=== PATIENT | female | born 1980 | race African-American/Black ===

== ENCOUNTER 2018-02-10 09:52 | Emergency (ER) | payer OTHER ==
[2018-02-10 10:13] VITALS: BP 127/79; PULSE 65; TEMP 98.4; BMI 38.7
[2018-02-10] MEDS ORDERED: IBUPROFEN 600 MG TABLET (FP) PO ONE ×2 (10:57→10:59)
--- NOTE | 2018-02-10 11:26 | PDOC ---
History of Present Illness - General Chief Complaint: Injury Stated Complaint: INJURY Time Seen by Provider: 02/10/18 10:55 History Source: Patient Exam Limitations: No Limitations - History of Present Illness Initial Comments: 02/10/18 11:23 pt twisted her left ankle on wet floor at work this morning . no obvious deformity or swelling. no pmhx. Past History - Past Medical History Allergies/Adverse Reactions: Allergies Allergy/AdvReac Type Severity Reaction Status Date / Time No Known Allergies Allergy Verified 02/10/18 10:10 Home Medications: Ambulatory Orders NK [No Known Home Medication] 02/10/18 COPD: No - Suicide/Smoking/Psychosocial Hx Smoking History: Current some day smoker Have you smoked in the past 12 months: Yes Number of Cigarettes Smoked Daily: 1 Information on smoking cessation initiated: No Hx Alcohol Use: No Drug/Substance Use Hx: No *Physical Exam - Vital Signs Last Vital Signs Temp Pulse Resp BP Pulse Ox 98.4 F 65 18 127/79 100 02/10/18 10:11 02/10/18 10:11 02/10/18 10:11 02/10/18 10:11 02/10/18 10:11 - Physical Exam General Appearance: Yes: Nourished, Appropriately Dressed HEENT: positive: EOMI, BLAISE Extremity: positive: Normal Capillary Refill, Normal Inspection, Normal Range of Motion, Tender (posterior ankle , medially tender to touch ) Integumentary: positive: Normal Color, Dry Neurologic: positive: Fully Oriented, Alert, Normal Mood/Affect, Normal Response , Motor Strength 5/5 Moderate Sedation - Procedure Monitoring Vital Signs: Procedure Monitoring Vital Signs Temperature 98.4 F 02/10/18 10:11 Pulse Rate 65 02/10/18 10:11 Respiratory Rate 18 02/10/18 10:11 Blood Pressure 127/79 02/10/18 10:11 O2 Sat by Pulse Oximetry (%) 100 02/10/18 10:11 Procedures - Splinting Splint Location: Left: Ankle Kuldip Bandage: yes, 3" ED Treatment Course - RADIOLOGY Radiology Studies Ordered: Category Date Time Status ANKLE-LEFT [RAD] Stat Radiology 02/10/18 10:57 Taken - Medications Given in the ED: ED Medications Discontinued Medications Generic Name Dose Route Start Last Admin Trade Name Freq PRN Reason Stop Dose Admin Ibuprofen 600 mg 02/10/18 10:57 02/10/18 11:02 Motrin - PO 02/10/18 10:58 600 mg ONCE ONE Administration Medical Decision Making - Medical Decision Making 02/10/18 11:23 cc: pain to left ankle posteriorly and medially nv intact no swelling or deformity will get xray to r/o fracture motrin for pain, ice pack in place *DC/Admit/Observation/Transfer Diagnosis at time of Disposition: Ankle sprain Qualifiers: Encounter type: initial encounter Involved ligament of ankle: unspecified ligament Laterality: left Qualified Code(s): S93.402A - Sprain of unspecified ligament of left ankle, initial encounter - Discharge Dispostion Disposition: HOME Condition at time of disposition: Good - Referrals Referrals: Saurav Michaels DO [Staff Physician] - - Patient Instructions Additional Instructions: elevate the ankle and apply ice every 2hrs for 20 minutes take motrin as needed for pain please follow up with the orthopedist in one week if pain persists or worsens - Post Discharge Activity Forms/Work/School Notes: Back to Work
== END 2018-02-10 11:38 | disposition home or self-care (01) ==
LOC: JERFT 09:52
PROC: 2W3RX1Z Immobilization of Left Lower Leg using Splint (ICD-10-PCS; principal; 2018-02-10)
DX: S93.402A Sprain of unspecified ligament of left ankle, initial encounter (principal); W01.0XXA Fall on same level from slipping, tripping and stumbling without subsequent striking against object, initial encounter; Y93.89 Activity, other specified; Y92.69 Other specified industrial and construction area as the place of occurrence of the external cause; Y99.0 Civilian activity done for income or pay
CPT/HCPCS: 73610-TC-LT-FY; 99281-25

== ENCOUNTER 2018-11-16 15:21 | Emergency (ER) | payer OTHER ==
[2018-11-16 15:27] VITALS: BMI 39.1
[2018-11-16 15:37] VITALS: BP 127/68; PULSE 80; TEMP 99.6
--- NOTE | 2018-11-16 15:55 | PDOC ---
History of Present Illness - General Chief Complaint: Urinary Problem Stated Complaint: PAIN ON URINATION Time Seen by Provider: 11/16/18 15:46 History Source: Patient Past History - Past Medical History Allergies/Adverse Reactions: Allergies Allergy/AdvReac Type Severity Reaction Status Date / Time No Known Allergies Allergy Verified 11/16/18 15:27 Home Medications: Ambulatory Orders Phenazopyridine HCl [Pyridium] 200 mg PO TID #12 tablet 11/16/18 levoFLOXacin [Levaquin] 750 mg PO DAILY #7 tab 11/16/18 COPD: No - Psycho Social/Smoking Cessation Hx Smoking History: Current some day smoker Have you smoked in the past 12 months: Yes Number of Cigarettes Smoked Daily: 1 Information on smoking cessation initiated: Yes Hx Alcohol Use: No Drug/Substance Use Hx: No *Physical Exam - Vital Signs Last Vital Signs Temp Pulse Resp BP Pulse Ox 99.6 F 80 18 127/68 100 11/16/18 15:21 11/16/18 15:21 11/16/18 15:21 11/16/18 15:21 11/16/18 15:21 ED Treatment Course - ADDITIONAL ORDERS Additional order review: Laboratory Results 11/16/18 15:22 Urine Color Yellow Urine Appearance Clear Urine pH 6.5 Urine Protein 3+ H Urine Glucose (UA) Negative Urine Ketones Negative Urine Blood 3+ H Urine Nitrite Positive H Urine Bilirubin Negative Urine Urobilinogen 0.2 Ur Leukocyte Esterase 1+ Discharge - Discharge Information Problems reviewed: Yes Clinical Impression/Diagnosis: Urinary tract infection Qualifiers: Urinary tract infection type: acute cystitis Hematuria presence: with hematuria Qualified Code(s): N30.01 - Acute cystitis with hematuria Condition: Improved Disposition: HOME - Admission No - Additional Discharge Information Prescriptions: levoFLOXacin [Levaquin] 750 mg PO DAILY #7 tab Phenazopyridine HCl [Pyridium] 200 mg PO TID #12 tablet Prescription Drug Monitoring Program (I-STOP) results: I-STOP reviewed and no issues identified - Follow up/Referral - Patient Discharge Instructions Patient Printed Discharge Instructions: Urinary Tract Infection - Post Discharge Activity Work/Back to School Note: Back to Work
[2018-11-16] MEDS ORDERED: PHENAZOPYRIDINE HCL 100 MG TABLET (FP) PO ONE (16:13)
[2018-11-16] MEDS ORDERED: PHENAZOPYRIDINE HCL 100 MG TABLET (FP) ONE (16:16)
[2018-11-16 17:26] LABS: EPITHELIAL CELLS FEW /hpf
== END 2018-11-16 16:37 | disposition home or self-care (01) ==
LOC: FER 15:21
DX: N30.01 Acute cystitis with hematuria (principal); F17.210 Nicotine dependence, cigarettes, uncomplicated
CPT/HCPCS: 81003; 81015; 84703; 87086; 87186; 99282-25

== ENCOUNTER 2019-09-08 09:20 | Emergency (ER) | payer OTHER ==
[2019-09-08 09:25] VITALS: BMI 42.0
[2019-09-08 10:04] LABS: BASO % 0.3 % (0-2.0); EOS % 1.1 % (0-4.5); HEMATOCRIT 34.8 % (32.4-45.2); HEMOGLOBIN 11.4 GM/dL (10.7-15.3); LYMPH % 24.8 % (8-40); MCH 29.2 pg (25.7-33.7); MCHC 32.8 g/dl (32.0-36.0); MEAN CELL VOLUME 89.1 fl (80-96); MEAN PLT VOLUME 8.4 fl (7.5-11.1); MONO % 9.6 % (3.8-10.2); NEUT % 64.2 % (42.8-82.8); PLATELET COUNT 223 K/MM3 (134-434); RBC 3.91 M/mm3 (3.60-5.2); RDW 14.2 % (11.6-15.6); WHITE BLOOD COUNT 7.7 K/mm3 (4.0-10.0)
[2019-09-08 10:39] LABS: ALBUMIN 3.4 g/dl (3.4-5.0); BILIRUBIN,TOTAL 0.2 mg/dL (0.2-1); BLOOD UREA NITROGEN 4.7 mg/dL (7-18); CALCIUM 9.1 mg/dL (8.5-10.1); CREATININE 0.6 mg/dL (0.55-1.3); POTASSIUM 3.9 mmol/L (3.5-5.1); TOT PROT 7.3 g/dl (6.4-8.2)
--- NOTE | 2019-09-08 11:07 | PDOC ---
Documentation entered by Power Victoria SCRIBE, acting as scribe for Arleth Roberts MD. Arleth Roberts MD: This documentation has been prepared by the Ciro styles Nirvannie, SCRIBE, under my direction and personally reviewed by me in its entirety. I confirm that the documentation accurately reflects all work, treatment, procedures, and medical decision making performed by me. History of Present Illness - General Chief Complaint: Pain Stated Complaint: 14 WKS PRGT ABD PAIN Time Seen by Provider: 09/08/19 09:34 History Source: Patient Exam Limitations: No Limitations - History of Present Illness Initial Comments: 09/08/19 10:13 39YOF 13 weeks 5d A0 with no significant past medical history who presents to the ED with right lower abdominal pain. As per patient, her symptoms onset this morning while getting ready for work as an intermittent, sharp discomfort without radiation occurring for approximately an hour. She denies similar symptoms in the past thus, called her [employer] and only able to speak to the answering service, prompting her arrival to the ED. Patient notes an associated pounding headache and low back pain which she contributes to the . She denies any vaginal bleeding, nausea, or vomiting. 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 currently getting treated for yeast infection. Denies fever, chills, chest pain, SOB, palpitation, dizziness, weakness, N, V, D, bladder and bowel problems, leg swelling, No sick contacts or travel. No new changes in medications. Allergies: None Past Medical History: none Social history: Lives with family. No tobacco, ETOH or drug use. Surgical history: knee surgery Meds: as documented in EMR 09/08/19 11:26 Past History - Medical History Allergies/Adverse Reactions: Allergies Allergy/AdvReac Type Severity Reaction Status Date / Time No Known Allergies Allergy Verified 09/08/19 09:22 COPD: No - Psycho-Social/Smoking History Smoking History: Never smoked Have you smoked in the past 12 months: Yes Number of Cigarettes Smoked Daily: 1 'Breaking Loose' booklet given: 11/16/18 - Substance Abuse Hx (Audit-C & DAST Scrn) How often the patient has a drink containing alcohol: Never Score: In Men: 4 or > Positive; In Women: 3 or > Positive: 0 Screen Result (Pos requires Nsg. Audit-10AR): Negative Review of Systems - Review of Systems Able to Perform ROS?: Yes Comments:: 09/08/19 10:16 Constitutional: no fevers or chills. HEENT: no headache or dizziness. No congestion. No visual/hearing disturbances. CVS: no cp or syncope. Resp: no sob. No cough. Gastrointestinal: + right lower abdominal pain. no nausea or vomiting. Genitourinary: no urinary sx, hematuria. MUSCULOSKELETAL: No joint pain and swelling. No neck or back pain. SKIN: no redness or skin changes, no discharge, no rash. No wounds. Hematologic: no easy bruising/bleeding. NEUROLOGIC: No headache, dizziness, LOC or altered mental status. No weakness, numbness or tingling. Psych: no anxiety or depression Allergic/Immunologic: no allergies All other systems reviewed and negative, or as documented in HPI. All Other Systems: Reviewed and Negative *Physical Exam - Vital Signs Last Vital Signs Temp Pulse Resp BP Pulse Ox 98.4 F 89 17 136/74 99 09/08/19 09:22 09/08/19 09:22 09/08/19 09:22 09/08/19 09:22 09/08/19 09:22 - Physical Exam 09/08/19 10:18 General: Well appearing, awake and alert, NAD. HEENT: NCAT, PERRL, EOMI, clear conjunctiva, anicteric, moist mucous membranes, clear oropharynx, no oral lesions.. Neck: neck supple, FROM Resp: CTAB, normal and even respirations, no respiratory distress CVS: RRR, no murmurs, 2+ peripheral pulses throughout, no peripheral edema Abdomen: soft, NTND, no rebound or guarding. No CVAT. Female : normal external genitalia, no lesions, clear vaginal vault, no CMT, no adnexal tenderness. Smooth and pink cervix, closed. Back: nontender, normal inspection and ROM] MSK: no edema, SUERO x4, ROM intact. No clubbing or cyanosis. normal bulk and t one. Extremities: no calf tenderness Neuro: alert, oriented appropriately; no focal neurologic deficits Skin: warm and well perfused, cap refill <2 sec, normal color ED Treatment Course - LABORATORY CBC & Chemistry Diagram: 09/08/19 09:45 09/08/19 09:45 Medical Decision Making - Medical Decision Making 09/08/19 11:28 Vital Signs Temp Pulse Resp BP Pulse Ox 98.4 F 89 17 136/74 99 09/08/19 09:22 09/08/19 09:22 09/08/19 09:22 09/08/19 09:22 09/08/19 09:22 DDx female abdominal pain: ovarian cyst, ovarian torsion, TOA, appy, UTI, pyelonephritis, STD/PID, Mittelschmerz, anemia, electrolyte/metabolic derangements, DUB, miscarriage, demise, subchorionic hematoma, retained POC, normal first trimester bleeding, UTI in in . Fibroid uterus, vaginitis, infection, electrolyte/metabolic derangements, anemia. round ligament pain/broad ligt pain. pelvic exam unremarkable, cottage cheese and antifungal cream present, no adnexal tenderness noted more RLQ tenderness, mod concern for acute appy with RLQ pain, will need MRI abdomen no txs needed, as pt is not bleeding VS wnl, normotensive, no tachy or hypoxia/respiratory distress. abdomen benign on reeval and no peritoneal findings, no VB here, controlled Beta hcg appropriate labs and lytes all reviewed, wnl, normal UA, neg for infection or abnormalities bedside pocus tab with live IUP seen, FHR 150 to 162 bpm, CRL dates 13.5 wks, xenia with approx 14 weeks for patient by dates Dr Feliciano called - does not want patient admitted agree with MRI abdomen to r/o appy, to be expedited as she has RLQ pain, needs r/o appy. discussed risk and benefits, with patient, signed consent form with minimal risks to the baby and patient, as there is no radiation or contrast media. call back with results. d/w Dr Velásquez, can do MRI 09/08/19 16:22 pending MRI read of her abdomen completed, called to Dr Velásquez who will try to look it over and provide report can eat s/o to Dr English pending official read and call back with Dr Feliciano, if no acute abnormalities, anticipate DC 09/08/19 16:24 09/08/19 16:25 Discharge - Discharge Information Problems reviewed: Yes Clinical Impression/Diagnosis: Right lower quadrant abdominal pain Condition: Stable - Follow up/Referral Referrals: Rocky Richardson [Primary Care Provider] - Katlin Feliciano MD [Staff Physician] - - Patient Discharge Instructions Patient Printed Discharge Instructions: DI for Abdominal Pain -- Early - Post Discharge Activity
[2019-09-08 11:15] LABS: PH,URINE 7.5 (5.0-8.0); URINE APPEARANCE TURBID; URINE BILIRUBIN NEGATIVE (NEGATIVE); URINE COLOR YELLOW; URINE GLUCOSE (UA) NEGATIVE (NEGATIVE); URINE KETONE NEGATIVE (NEGATIVE); URINE LEUK ESTERASE NEGATIVE (NEGATIVE); URINE NITRITE NEGATIVE (NEGATIVE); URINE PROTEIN NEGATIVE (NEGATIVE); URINE UROBILINOGEN 0.2 mg/dL (0.2-1.0)
--- NOTE | 2019-09-08 17:10 | PDOC ---
*Physical Exam - Vital Signs Last Vital Signs Temp Pulse Resp BP Pulse Ox 98.7 F 68 17 94/60 100 09/08/19 16:25 09/08/19 16:25 09/08/19 09:22 09/08/19 16:25 09/08/19 16:25 - Physical Exam 09/08/19 17:12 Patient's care endorsed to me at the end of Dr. Roberts's shift. This is a 39YOF who is ~14 weeks , uncomplicated thus far except she was previously determined to be high-risk d/t her age and her known uterine fibroids. She presented with RLQ pain which was significant for about one hour this today, patient states since resolved, she also has been hungry. She had gotten abdominal MRI images taken and now pending radiology read. ED Treatment Course - LABORATORY CBC & Chemistry Diagram: 09/08/19 09:45 09/08/19 09:45 - ADDITIONAL ORDERS Additional order review: Laboratory Results 09/08/19 09/08/19 09/08/19 09:45 09:45 09:45 Sodium 138 Potassium 3.9 Chloride 107 Carbon Dioxide 22 Anion Gap 8 BUN 4.7 L Creatinine 0.6 Est GFR (CKD-EPI)AfAm 134.01 Est GFR (CKD-EPI)NonAf 115.63 Random Glucose 94 Calcium 9.1 Total Bilirubin 0.2 AST 15 ALT 23 Alkaline Phosphatase 56 Total Protein 7.3 Albumin 3.4 Beta HCG, Quant 57228.8 Urine Color Yellow Urine Appearance Turbid Urine pH 7.5 Ur Specific [place] 1.019 Urine Protein Negative Urine Glucose (UA) Negative Urine Ketones Negative Urine Blood Negative Urine Nitrite Negative Urine Bilirubin Negative Urine Urobilinogen 0.2 Ur Leukocyte Esterase Negative Blood Type O POSITIVE Antibody Screen Negative 09/08/19 09:45 RBC 3.91 MCV 89.1 MCHC 32.8 RDW 14.2 MPV 8.4 Neutrophils % 64.2 Lymphocytes % 24.8 Monocytes % 9.6 Eosinophils % 1.1 Basophils % 0.3 Medical Decision Making - Medical Decision Making 09/08/19 17:15 The patient's MRI report is as follows: MRI/ABDOMEN MRI W/O CONTRAST /MRCP MRI OF THE ABDOMEN WITHOUT IV GADOLINIUM HISTORY: 39-year-old female with clinical suspicion of appendicitis TECHNIQUE: Multiplanar multisequential MRI of the abdomen without the intravenous administration of contrast were performed on a high field 1.5 Umu GE magnet. Axial, sagittal and coronal T2 SSFSE, axial T2 fat sat SSFSE, axial T1, coronal T2 fiesta and diffusion-weighted images were obtained. No comparison study is available. FINDINGS: Limited evaluation of the inferior half of the liver and spleen demonstrate no gross signal abnormality. Limited evaluation of the pancreas appear grossly unremarkable. No gallstones seen. No pericholecystic fluid seen. There is no biliary ductal dilatation. The adrenal glands are unremarkable. There is no right or left hydronephrosis. There is 9 to 10 mm right upper renal pole cyst. Gravid uterus with intrauterine fetus seen. There is a large anterior lower uterine segment p redominantly intramural mass measuring 9.9 x 10.9 x 7.5 cm (craniocaudad by transverse by AP) statis tically likely fibroid. A uterine dome mass measuring 3.5 x 2.7 cm is seen. There is a 5.5 x 5.4 cm right mid uterine segment intramural mass. There is a 6.5 x 5.0 x 4.2 cm right adnexal mass of simil ar signal intensity to the uterine lesions described above. Partly normal appendix is felt to be seen. There is mild edema in the right adnexa and adjacent to the right cecum. There are a few small shoddy lymph nodes. IMPRESSION: Gravid uterus containing numerous predominantly intramural masses as described above the largest measuring 9.9 x 10.9 x 7.5 cm in the anterior lower uterine segment with mass effect the cervix and lower endometrium. These masses statistically likely represent fibroids. 6.5 x 5.0 x 4.2 cm right adnexal mass inseparable from the cecum isointense to the uterine masses statistically likely exophytic/pedunculated fibroid however fallopian t ube or adnexal mass including fallopian tube or ovarian fibroid cannot be excluded. Limited evaluation of the appendix due to the presence of the adjacent mass. Partly normal appendix seen. Mild edema/minimal fluid in the right lower abdominal quadrant felt to be secondary to the adnexal mass/fibroid however subtle or early appendicitis in the nonvisualized portion of the appendix cannot be completely excluded. It with clinical history and symptoms. Follow-up as needed. I discuss the findings at length with the patient, she notes she has known uterine fibroids. There is no overt e/o appendicitis on the abdominal MRI and the patient's symptoms have resolved. Repeat abdominal exam is gravid but soft, completely nontender, negative Rovsing sign, negative psoas and obturator signs. Repeat vitals are wnl as noted below. The patient is eating crackers without issue, states she wants to go home and have a big dinner because she has not eaten anything all day an is very hungry. Shared decision making is done and patient much prefers to go home. We do discuss the risks and benefits at length, she understands and wants to go home. We discuss return precautions at length and she understands how serious is may be if she has any of the symptoms listed in her discharge instructions (especially recurrence of the pain, fever, chills, nausea, vomiting, vaginal bleeding/discharge, etc). She will f/u with PCP and TRANSPORTATION ATTENDANT and come back for any of these symptoms or other concerns. Vital Signs - 24 hr 09/08/19 09/08/19 09/08/19 09:22 16:25 17:24 Temperature 98.4 F 98.7 F 97.2 F L Pulse Rate 89 Pulse Rate [ 68 74 Left Radial] Respiratory 17 15 Rate Blood Pressure 136/74 Blood Pressure 94/60 121/67 [Right Arm] O2 Sat by Pulse 99 100 100 Oximetry (%) Discharge - Discharge Information Problems reviewed: Yes Clinical Impression/Diagnosis: Right lower quadrant abdominal pain, Second trimester Condition: Stable Disposition: HOME - Admission No - Follow up/Referral Referrals: Katlin Feliciano MD [Staff Physician] - Rocky Richardson [Primary Care Provider] - - Patient Discharge Instructions Patient Printed Discharge Instructions: DI for Abdominal Pain -- Early Additional Instructions: You were seen in the ER for right lower abdominal pain. We did an exam, labs, and imaging studies, and gave you pain medications. We were concerned abou the possibility you may have appendicitis, so we did an abdominal MRI, and it showed a mass in your right lower abdomen which they noted may be a fibroid. There were other fibroid around your uterus as well. The view of your appendix was limited, but the portions seen on the MRI appeared normal. Your pain resolved here in the ER and you wee able to keep down crackers. We were considering keeping you for repeat abdominal exams to make sure your pain did not recur, but you chose to go home and monitor at home instead. Please follow up with your regular PCP and TRANSPORTATION ATTENDANT in 1-3 days. Call their clinic, tell them you were seen in the ER, and tell them you need a follow-up. If you have any new or worsening symptoms, please come back to the ER at any time (24 hours a day). Especially come back if your pain recurs, if you have loss of appetite, nausea, vomiting, rectal bleeding, fever, chills, back pain, leg pain, vaginal bleeding or discharge, or any other new symptoms. It is very important that you come back immediately if you have any of these symptoms. If you are having severe or life threatening symptoms, or symptoms that make it unsafe to drive or have someone drive you, please call 911. - Post Discharge Activity
[2019-09-08 17:25] VITALS: BP 121/67; PULSE 74; TEMP 97.2
== END 2019-09-08 17:27 | disposition home or self-care (01) ==
LOC: JER 09:20
DX: R10.31 Right lower quadrant pain (principal); Z3A.14 14 weeks gestation of pregnancy
CPT/HCPCS: 36415; 74181-TC; 76815; 80053; 81003; 84702; 85025; 86850; 86900; 86901; 87086; 99284-25